=== PATIENT | male | born 1990 | race American Indian/Alaskan Native ===

== ENCOUNTER 2019-09-09 17:35 | Emergency (ER) | payer SELFPAY ==
[2019-09-09 18:12] VITALS: BP 134/78
--- NOTE | 2019-09-09 20:05 | Emergency Department Report ---
Blank Doc - Documentation Documentation: 29-year-old male that presents with right hip pain. This initial assessment/diagnostic orders/clinical plan/treatment(s) is/are subject to change based on patient's health status, clinical progression and re- assessment by fellow clinical providers in the ED. Further treatment and workup at subsequent clinical providers discretion. Patient/guardians urged not to elope from the ED as their condition may be serious if not clinically assessed and managed. Initial orders include: 1- Patient sent to [facility] for further evaluation and treatment 2- xrays
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
== END 2019-09-09 21:09 | disposition home or self-care (01) ==
LOC: ED 17:35
DX: M25.551 Pain in right hip (principal)